=== PATIENT | female | born 1995 | race Caucasian/White ===

== ENCOUNTER → 2017-04-10 | Outpatient (CLI) | payer OTHER ==
[~2017-04-10] MED LIST: IBUPROFEN 600600 M1 PO; TRAMADOL 50 MG50 MG PO
== END ==
LOC: MRI 07:10
DX: M75.81 Other shoulder lesions, right shoulder (principal); R60.0 Localized edema

== ENCOUNTER → 2017-10-13 | Outpatient (CLI) | payer OTHER ==
--- NOTE | ~2017-10-13 | EXE ---
[facility] [place] [address] STRESS ECHOCARDIOGRAM Name: SUZETTE GREER Room #: REG [facility]#: [id number] Admission: 10/13/17 Attend Phys: Yang Collado MD Discharge: Date of : 89 Date of Service: 10/13/17 1546 Report #: [id number] THIS REPORT FOR: //name// APPROVED REPORT Exam: Stress Echocardiogram Indication: Fatigue, history of NM, Pre-Op Patient Location: Out-Patient Stress Nurse: Anni Day, RN, Ivet Lopez RN Status: routine Ht: 5 ft 1 in HR: 94 bpm BP: 108/74 mmHg Rhythm: NSR Medical History Medical History: NM during in 2013 Allergies: Listed on wrksht Procedure The patient underwent an Exercise Stress Test using the Binh Protocol. Blood pressure, heart rate, and EKG were monitored. An Echocardiogram was performed by emergency response technician in four stages in quad fashion. At peak stress, four selected images were obtained and placed side by side with resting images for comparison. Stress Test Details Stress Test: Exercise stress testing was performed using a Binh protocol. HR Resting HR: 94 bpm Max Heart Rate (APMHR): 196 bpm Max HR Achieved: 184 bpm Target HR (85% APMHR): 166 bpm % of APMHR: 93 Recovery HR: 117 bpm HR response to stress: Normal HR response to stress BP Resting BP: 108/74 mmHg Max BP: 158/66 mmHg Recovery BP: 134/66 mmHg ECG Resting ECG: Sinus Rhythm Stress ECG: Sinus Rhythm, NSSTT changes ST Change: Non-ischemic [facility] [address] [place] [address] STRESS ECHOCARDIOGRAM Name: SUZETTE GREER Room #: REG CL [facility]#: [id number] Admission: 10/13/17 Attend Phys: Yang Collado MD Discharge: Date of : 89 Date of Service: 10/13/17 1546 Report #: [id number] Clinical Reason for Termination: Moderate fatigue Stress Symptoms: Fatigue, sob Exercise duration: 11 min sec Highest Stage Achieved: Stage 4: 4.2 mph at 16% grade. Exercise capacity: 13.7 METs Pre-Stress Echo The resting Echocardiogram showed normal left ventricular contractility with an estimated Ejection Fraction of about 50-55%. Mild TR, tivial MR. Post-Stress Echo The stress Echocardiogram showed normal left ventricular contractility with an estimated Ejection Fraction of about 60-65%. Normal augmentation of wall motion in all segments on post stress images. Clinical No clinical or ECG evidence for ischemia. Conclusion Clinical Response: Non-ischemic Exercise Capacity: Above average Stress ECG Response: Non-ischemic Stress Echo Images: Non-ischemic No clinical, EKG or echocardiographic evidence for ischemia. Other Information Study Quality: Adequate <Conclusion> No clinical, EKG or echocardiographic evidence for ischemia. <ELECTRONICALLY SIGNED> By: Yang Collado MD 10/13/17 1546 1546 1546 Yang Collado MD /INF
== END ==
LOC: CV 09:32
DX: Z01.818 Encounter for other preprocedural examination (principal); R53.83 Other fatigue